=== PATIENT | female | born 1950 | race Caucasian/White ===

== ENCOUNTER → 2016-06-24 | Outpatient (CLI) | payer MEDICARE ==
[~2016-06-24] MED LIST: ALBU0.632 IH; ASPI-586 PO; CALC-654 PO; CHOL100045 PO; DIAZ5TAB3 PO; FAMO-119 PO; FLAX100031 PO; FLUT9.9S NSEACH; GLUC-173 PO; LEVO25TA5 PO; LEVO88TA26 PO; MULT1CAP27 PO; NFBIOT1000 PO; OMG1KC PO; SPIR100T2 PO; SPIR1POW3 MC; TEMA15CA6 PO
--- NOTE | 2016-06-24 12:02 | Diagnostic Imaging Report ---
INDICATION: Left hip pain. Bursitis. COMPARISON: None. FINDINGS: Two radiographic views of the left hip were obtained. There is no fracture, dislocation, bone destruction, or radiopaque foreign body. Mild degenerative changes are present in the hip joint. The visualized pelvic osseous structures and the SI joints demonstrate no acute fracture or dislocation. There is no bone destruction or radiopaque foreign body. The surrounding soft tissue structures are unremarkable. IMPRESSION: 1. No acute fracture or dislocation in the left hip joint. . 2. Mild osteoarthritic changes of the left hip. Correlation with MR is recommended. Dictated by: Dictated on workstation # [id number]
--- NOTE | 2016-06-24 22:58 | HISTORY AND PHYSICAL ---
DATE OF SERVICE: 06/24/2016 HISTORY OF PRESENT ILLNESS: The patient is a 65-year-old white female referred by Dr. Rincon for EGD evaluation. She reports worsening reflux symptoms associated with hoarseness and throat clearing. She denies dysphagia. Her symptoms exacerbated since switching from Nexium after hearing side effects about the PPI class of medication to Pepcid that she has been taking 20 mg b.i.d. She predominantly has morning symptoms and has the sensation of refluxate in the upper part of her esophagus, especially after meals. She denies dysphagia and has noted no bright red blood per rectum or melena. Energy level has been typical. She has noticed some associated weight loss, and by our record, she is down 7 pounds compared to a weight from 2013. PAST MEDICAL HISTORY: Other than reflux, is relatively unremarkable. She has insomnia for which she takes temazepam and occasional diarrhea that she takes Lomotil for. She takes fish oil for primary prevention with no known history of coronary artery disease, cerebrovascular disease or peripheral vascular disease. She does take a baby aspirin daily. ALLERGIES: She reports an ALLERGY to SULFA, which causes rash. PAST SURGICAL HISTORY: She has had total abdominal hysterectomy, tonsillectomy and adenoidectomy and D and C all in the distant past. SOCIAL HISTORY: She is . No past smoking history is reported with occasional social alcohol intake. FAMILY HISTORY: She is not aware of any family history for GI tract malignancy. PHYSICAL EXAMINATION: GENERAL: Normal weight white female who sounds slightly hoarse, but does not appear to be in any acute distress. VITAL SIGNS: Weight is 128 pounds. Blood pressure was 108/70. . HEENT: Oral cavity reveals Mallampati Class 2 configuration. No posterior pharyngeal erythema is noted. NECK: Reveals no JVD, adenopathy or bruits. CHEST: Clear. CARDIOVASCULAR: Reveals a regular rate and rhythm without murmur, S3 or S4. ABDOMEN: Soft, supple without mass, organomegaly or tenderness. Bowel sounds are positive. DIAGNOSTIC DATA: Her electronic medical record was reviewed. She last underwent EGD evaluation in 09/2012. She had 1 fundal gland polyp removed. She had mild changes of esophagitis without evidence for erosive esophagitis at that time when she was on Nexium therapy. ASSESSMENT: Exacerbation of reflux symptoms with likely associated hoarseness and throat clearing. The patient was set up for esophagogastroduodenoscopy on 07/03. She is advised to discontinue aspirin 1 week prior to the procedure and fish oil 48 hours prior to the procedure. Prep instructions were given and questions were answered. Electronic medical record was reviewed. 45 minutes of my care time spent with another 15 minutes of nursing staff time. I thank you for the referral of this pleasant lady. Job ID: [id number] DocumentID: [id number] Dictated Date: 06/24/2016 21:01:36 Teller Vault Date: 06/24/2016 22:57:24 Dictated By: BISMARK JACOBS MD [facility]
== END ==
LOC: RAD 11:27
PROVIDERS: ATTEND Family Medicine
DX: M25.552 Pain in left hip (principal)
CPT/HCPCS: 73502

== ENCOUNTER 2016-06-26 08:31 | Outpatient (RCR) | payer MEDICARE ==
[~2016-06-26 08:31] MED LIST changes: -ASPI-586 PO; -CALC-654 PO; -CHOL100045 PO; -FAMO-119 PO; -FLAX100031 PO; -FLUT9.9S NSEACH; -GLUC-173 PO; -LEVO25TA5 PO; -MULT1CAP27 PO; -NFBIOT1000 PO; -OMG1KC PO; -SPIR100T2 PO; -TEMA15CA6 PO
[2016-06-30] MEDS ORDERED: FLAX100031 PO (13:26)
[2016-06-30] MEDS ORDERED: TEMA15CA6 PO (13:26)
[2016-06-30] MEDS ORDERED: FLUT9.9S NSEACH (13:26)
[2016-06-30] MEDS ORDERED: FAMO-119 PO (13:26)
[2016-06-30] MEDS ORDERED: GLUC-173 PO (13:26)
[2016-06-30] MEDS ORDERED: SPIR100T2 PO (13:26)
[2016-06-30] MEDS ORDERED: MULT1CAP27 PO (13:26)
[2016-06-30] MEDS ORDERED: LEVO25TA5 PO (13:26)
[2016-06-30] MEDS ORDERED: CHOL100045 PO (13:26)
[2016-06-30] MEDS ORDERED: OMG1KC PO (13:26)
[2016-06-30] MEDS ORDERED: NFBIOT1000 PO (13:26)
[2016-06-30] MEDS ORDERED: ASPI-586 PO (13:26)
[2016-06-30] MEDS ORDERED: CALC-654 PO (13:26)
== END 2016-08-18 14:19 | disposition home or self-care (01) ==
PROVIDERS: ATTEND Nurse Practitioner
DX: S39.011A Strain of muscle, fascia and tendon of abdomen, initial encounter (principal); X50.9XXA Other and unspecified overexertion or strenuous movements or postures, initial encounter; Y99.8 Other external cause status

== ENCOUNTER 2016-06-30 06:00 | Outpatient (CLI) | payer MEDICARE ==
[~2016-06-30] VITALS: Ht 160 cm; Wt 59.0 kg
[2016-06-30] MEDS ORDERED: GLUC-173 PO (13:26)
[2016-06-30] MEDS ORDERED: NFBIOT1000 PO (13:26)
[2016-06-30] MEDS ORDERED: SPIR100T2 PO (13:26)
[2016-06-30] MEDS ORDERED: CHOL100045 PO (13:26)
[2016-06-30] MEDS ORDERED: TEMA15CA6 PO (13:26)
[2016-06-30] MEDS ORDERED: FLUT9.9S NSEACH (13:26)
[2016-06-30] MEDS ORDERED: ASPI-586 PO (13:26)
[2016-06-30] MEDS ORDERED: OMG1KC PO (13:26)
[2016-06-30] MEDS ORDERED: LEVO25TA5 PO (13:26)
[2016-06-30] MEDS ORDERED: FLAX100031 PO (13:26)
[2016-06-30] MEDS ORDERED: FAMO-119 PO (13:26)
[2016-06-30] MEDS ORDERED: CALC-654 PO (13:26)
[2016-06-30] MEDS ORDERED: MULT1CAP27 PO (13:26)
== END 2016-06-30 13:28 ==
LOC: PREOP 06:00
PROVIDERS: ATTEND Internal Medicine
DX: Z01.818 Encounter for other preprocedural examination (principal); R05 Cough; K21.9 Gastro-esophageal reflux disease without esophagitis; R49.0 Dysphonia

== ENCOUNTER 2016-07-03 07:03 | Day surgery (SDC) | payer MEDICARE ==
[~2016-07-03] VITALS: Ht 160 cm; Wt 59.0 kg
[~2016-07-03 07:03] MED LIST changes: +ASPI-586 PO; +CALC-654 PO; +CHOL100045 PO; +FAMO-119 PO; +FLAX100031 PO; +FLUT9.9S NSEACH; +GLUC-173 PO; +LEVO25TA5 PO; +MULT1CAP27 PO; +NFBIOT1000 PO; +OMG1KC PO; +SPIR100T2 PO; +TEMA15CA6 PO
[2016-07-03] MEDS ORDERED: D5 LR IV SOLUTION 1,000 ML IV STA (07:10)
[2016-07-03] MEDS ORDERED: fentaNYL INJECTION 100 MCG/2 ML AMP IVP PRN (07:15)
[2016-07-03] MEDS ORDERED: NALOXONE 0.4 MG/ML 1 ML (NARCAN) VIAL IVP PRN (07:15)
[2016-07-03] MEDS ORDERED: FLUMAZENIL (ROMAZICON) 0.1 MG/ML 5 ML VIAL INJ PRN (07:15)
[2016-07-03] MEDS ORDERED: HURRICAINE EXT TUBE (BENZOCAINE) XX PRN (07:15)
[2016-07-03] MEDS ORDERED: LIDOCAINE JELLY 2% (XYLOCAINE) 5 ML TUBE MM PRN (07:15)
[2016-07-03] MEDS ORDERED: MIDAZOLAM 2 MG/2 ML (VERSED) VIAL ONE ×3 (07:33→07:34)
[2016-07-03] MEDS ORDERED: fentaNYL INJECTION 100 MCG/2 ML AMP ONE (07:34)
[2016-07-03] MEDS ORDERED: LIDOCAINE JELLY 2% (XYLOCAINE) 5 ML TUBE ONE (07:34)
[2016-07-03] MEDS ORDERED: ONDANSETRON 4 MG/2 ML (SDV) Z0FRAN ONE (07:35)
[2016-07-03 08:00] VITALS: BP 117/72
[2016-07-03] MEDS: MIDAZOLAM 2 MG/2 ML (VERSED) VIAL IVP PRN ×3 (08:00→08:10)
--- NOTE | 2016-07-03 08:23 | Pre-Op Note & Conscious Sedat ---
Pre-Operative Progress Note H&P Reviewed The H&P was reviewed, patient examined and no changes noted. Date H&P Reviewed: July 03, 2016 Time H&P Reviewed: 07:45 Conscious Sedation Pre-Proced ASA Class: 1 Airway Mallampati Classification: ([place] appropriate class) I. II. III, IV Lungs Heart ASA score ASA 1: a normal healthy patient ASA 2: a patient with a mild systemic disease (mid diabetes, controlled hypertension, obesity ASA 3: a patient with a severe systemic disease that limits activity (angina , COPD, prior Myocardial infarction) ASA 4: a patient with an incapacitating disease that is a constant threat to life (CHF, renal failure) ASA 5: a moribund patient not expected to survive 24 hrs. (ruptured aneurysm) ASA 6: a declared brain patient whose organs are being harvested. For emergent operations, add the letter E after the classification Grade 2 Sedation Plan: Analgesia, Amnesia, Plan communicated to team members, Discussed options with patient/fam, Discussed risks with patient/fam Note The patient is an appropriate candidate to undergo the planned procedure, sedation, and anesthesia. The patient immediately re-assessed prior to indication. BISMARK JACOBS MD July 03, 2016 08:23
[2016-07-03 08:40] VITALS: BP 120/77
[2016-07-03 09:15] VITALS: BP 105/69
[2016-07-03 09:40] VITALS: BP 120/77
[2016-07-03 10:00] VITALS: BP 120/77
[2016-07-03 10:05] VITALS: BP 120/77
--- NOTE | 2016-07-03 11:50 | OPERATIVE REPORT ---
DATE OF SERVICE: EGD SUMMARY INDICATION FOR THE PROCEDURE: Hoarseness, chronic cough, history of reflux. The patient was placed in the left lateral decubitus position. The endoscope was inserted in the oral cavity and under direct visualization the esophagus was intubated. The scope was passed down the esophagus through the stomach and into the second portion of the duodenum. A careful inspection was made as the endoscope was withdrawn. The patient tolerated the procedure well. FINDINGS: Posterior hypopharynx, arytenoid aperture and true and false vocal folds were unremarkable. No evidence for erythema or vocal cord polyps were noted. The patient's voice quality before and after the procedure was normal, no hoarseness appreciated. The proximal mid and distal esophagus were unremarkable except for small traction diverticulum noted in the mid esophagus. No retained food was noted. No inflammatory change was noted. There was no evidence of 135, strictures or Yepez's change. The Z-line was distinct. Biopsy was obtained and submitted for histopathology. Several small fundal appearing polyps were noted along the greater curvature of the stomach. Largest one was removed via hot forceps in its entirety and submitted for histopathology. Remainder of the stomach was unremarkable with no evidence for erosions or gastritis. Biopsy was obtained and submitted for Helicobacter. The pylorus, pyloric channel, duodenal bulb and second portion of the duodenum were unremarkable. ASSESSMENT: There was no evidence of erosive esophagitis on today's study. The patient did not have evidence for hiatal hernia formation. Several small fundal polyps were present; the largest was removed and submitted for histopathology. A biopsy is pending for Helicobacter evaluation. We discussed the fact that while reflux and secondary cough has not been ruled out today, she has no evidence for erosive esophagitis, would continue b.i.d. Pepcid for now. She does have a history of asthma that she perceives as being mild and rarely uses albuterol via MDI only. We did discuss cough variant asthma and recommended that she try a month course of the antinflammatory inhaler of your choice. If this does not improve cough, would then recommend a 24-hour pH study to see if she is indeed having significant reflux without erosive esophagitis. I thank you for the referral of this pleasant lady reassured by today's study. Job ID: [id number] DocumentID: [id number] Dictated Date: 07/03/2016 10:03:10 Shell Reprint Operator Date: 07/03/2016 11:22:23 Dictated By: BISMARK JACOBS MD [facility]
--- NOTE | 2016-07-09 08:56 | HISTORY AND PHYSICAL ---
DATE OF SERVICE: 07/03/2016 HISTORY OF PRESENT ILLNESS: The patient is a 65-year-old white female referred by Dr. Rincon for EGD evaluation. She reports worsening reflux symptoms associated with hoarseness and throat clearing. She denies dysphagia. Her symptoms exacerbated since switching from Nexium after hearing side effects about the PPI class of medication to Pepcid that she has been taking 20 mg b.i.d. She predominantly has morning symptoms and has the sensation of refluxate in the upper part of her esophagus, especially after meals. She denies dysphagia and has noted no bright red blood per rectum or melena. Energy level has been typical. She has noticed some associated weight loss, and by our record, she is down 7 pounds compared to a weight from 2013. PAST MEDICAL HISTORY: Other than reflux, is relatively unremarkable. She has insomnia for which she takes temazepam and occasional diarrhea that she takes Lomotil for. She takes fish oil for primary prevention with no known history of coronary artery disease, cerebrovascular disease or peripheral vascular disease. She does take a baby aspirin daily. ALLERGIES: She reports an ALLERGY to SULFA, which causes rash. PAST SURGICAL HISTORY: She has had total abdominal hysterectomy, tonsillectomy and adenoidectomy and D and C all in the distant past. SOCIAL HISTORY: She is . No past smoking history is reported with occasional social alcohol intake. FAMILY HISTORY: She is not aware of any family history for GI tract malignancy. PHYSICAL EXAMINATION: GENERAL: Normal weight white female who sounds slightly hoarse, but does not appear to be in any acute distress. VITAL SIGNS: Weight is 128 pounds. Blood pressure was 108/70. . HEENT: Oral cavity reveals Mallampati Class 2 configuration. No posterior pharyngeal erythema is noted. NECK: Reveals no JVD, adenopathy or bruits. CHEST: Clear. CARDIOVASCULAR: Reveals a regular rate and rhythm without murmur, S3 or S4. ABDOMEN: Soft, supple without mass, organomegaly or tenderness. Bowel sounds are positive. DIAGNOSTIC DATA: Her electronic medical record was reviewed. She last underwent EGD evaluation in 09/2012. She had 1 fundal gland polyp removed. She had mild changes of esophagitis without evidence for erosive esophagitis at that time when she was on Nexium therapy. ASSESSMENT: Exacerbation of reflux symptoms with likely associated hoarseness and throat clearing. The patient was set up for esophagogastroduodenoscopy on 07/03. She is advised to discontinue aspirin 1 week prior to the procedure and fish oil 48 hours prior to the procedure. Prep instructions were given and questions were answered. Electronic medical record was reviewed. 45 minutes of my care time spent with another 15 minutes of nursing staff time. I thank you for the referral of this pleasant lady. Job ID: [id number] DocumentID: [id number] Dictated Date: 06/24/2016 21:01:36 Route Delivery Supervisor Date: 06/24/2016 22:57:24 Dictated By: BISMARK JACOBS MD <Dictated by BISMARK JACOBS MD> <Electronically signed by BISMARK JACOBS MD> 06/30/16 1010
== END 2016-07-03 10:05 | disposition home or self-care (01) ==
LOC: ENDO 07:03
PROVIDERS: ATTEND Internal Medicine
DX: K21.9 Gastro-esophageal reflux disease without esophagitis (principal); K31.7 Polyp of stomach and duodenum
CPT/HCPCS: 88305

== ENCOUNTER → 2016-07-07 | Outpatient (CLI) | payer MEDICARE ==
--- NOTE | 2016-07-07 10:21 | Diagnostic Imaging Report ---
PROCEDURE: US Thyroid. TECHNIQUE: Multiple real-time grayscale images were obtained of the thyroid in various projections. Indication: Followup thyroid nodules. Comparison: 08/16/2015 and 02/14/2009. Discussion: The thyroid gland is normal in echotexture and size. The right thyroid measures 4.4 x 1.8 cm. The left thyroid measures 4.7 x 1.9 cm. Solid-appearing heterogenous nodule within the right thyroid gland measures 1 cm, stable. Minimal peripheral and central color Doppler blood flow is again noted. No suspicious microcalcifications. Dominant cystic nodule within the left thyroid gland shows a small solid component and appears essentially stable in overall size. A 1 cm solid nodule within the left thyroid gland is stable in overall size and appearance. Interval development of a simple appearing anechoic cyst within the isthmus which measures 1.3 x 1.7 x 0.7 cm which is statistically benign though indeterminate. Recommend one-year sonographic followup to document further stability. Impression: 1. Bilateral thyroid nodules as described. There is a new cystic nodule within the isthmus which is statistically benign given its entirely cystic component. The solid nodules within the bilateral thyroid gland measure up to 1 cm and show no adverse interval change. Recommend one-year sonographic followup. Dictated by: Dictated on workstation # [id number]
== END ==
LOC: RAD 09:20
PROVIDERS: ATTEND Otolaryngology Otolaryngology/Facial Plastic Surgery
DX: E04.1 Nontoxic single thyroid nodule (principal)
CPT/HCPCS: 76536

== ENCOUNTER 2016-09-21 05:36 | Outpatient (CLI) | payer MEDICARE ==
[~2016-09-21] VITALS: Ht 160 cm; Wt 59.0 kg
[2016-09-21] MEDS ORDERED: CYAN50008 PO (11:07)
== END 2016-09-21 11:11 ==
LOC: PREOP 05:36
PROVIDERS: ATTEND Internal Medicine
DX: Z01.818 Encounter for other preprocedural examination (principal); Z12.11 Encounter for screening for malignant neoplasm of colon; Z86.010 Personal history of colon polyps

== ENCOUNTER 2016-09-25 07:02 | Day surgery (SDC) | payer MEDICARE ==
[~2016-09-25] VITALS: Ht 160 cm; Wt 59.0 kg
[~2016-09-25 07:02] MED LIST changes: +CYAN50008 PO
--- OUTSIDE RECORDS SUMMARY | 2016-09-25 07:08 | XMS REPORT | Clinical Summary ---
Author Author [facility] Organization [facility] Address Unknown Phone Unavailable Care Team Providers Care Case Repairer Name Role Phone PCP Unavailable Source Comments Some departments are not documenting in the electronic medical record. If you do not see the information that you expected, contact Release of Information in the Health Information Management department at [phone] for further assistance in locating additional records.[facility] Allergies Active Allergy Reactions Severity Noted Date Comments Sulfa (Sulfonamide RASH 02/19/2014 Antibiotics) Current Medications Prescription Sig. Disp. Refills Start End Date Status Date levothyroxine (SYNTHROID) Take 88 mcg by mouth Active 88 mcg tablet daily. pantoprazole DR Take 40 mg by mouth Active (PROTONIX) 40 mg tablet daily. temazepam (RESTORIL) 15 Take 15 mg by mouth at Active mg capsule bedtime as needed. diphenoxylate/atropine Take 1 Tab by mouth four Active (LOMOTIL) 2.5/0.025 mg times daily as needed. tablet fluticasone (FLONASE) 50 Apply 2 Sprays to each Active mcg/actuation nasal spray nostril as directed daily. FOLIC Take by mouth. Active ACID/MULTIVITS-MIN/LUT (CENTRUM SILVER PO) vitamins, B complex tab Take 1 Tab by mouth Active daily. omega-3 fatty Take by mouth. Active lhgyy-ete-oap (MEGARED GUPIE-WSGFX-4) 300 mg cap FLAXSEED PO Take by mouth. Active aspirin EC (ASPIR-81) 81 Take 81 mg by mouth Active mg tablet daily. coQ10 (ubiquinol) 100 mg Take by mouth. Active cap magnesium citrate oral Take 296 mL by mouth Active solution once. cholecalciferol (Vitamin Take 1,000 Units by mouth Active D3) (VITAMIN D-3) 1,000 daily. units tablet calcium Administer through vein. Active Active Problems Problem Noted Date Hydronephrosis, right 02/19/2014 Ureteral stricture, right 02/19/2014 Overview: 63 year old female with R distal ureteral stricture of unknown origin resulting in an essentially non-functioning R kidney with R hydroureteronephrosis. Completely asymptomatic at this time. L ast Assessment & Plan: Plan: 1. Discussed with patient that indications for surgical intervention would be recurrent infections and uncontrolled R flank pain. She is completely asymptomatic at this time and thus it is reasonable for her to watch and wait to see if symptoms develop. If she remains asymptomatic, no intervention is needed. 2. She will RTC prn and will follow up with her PCP. If she develops recurrent UTIs or pain on that side, she will return to clinic to discuss further intervention. 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 Pulse 73 02/19/2014 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 Temperature - - Respiratory Rate - - Oxygen Saturation - - Inhaled Oxygen - - Concentration Weight 61.4 kg (135 lb 6.4 oz) 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
--- OUTSIDE RECORDS SUMMARY | 2016-09-25 07:09 | XMS REPORT | Continuity of Care Document ---
Author Author [facility] Organization [facility] Address Unknown Phone Unavailable Allergies Active Description Code Type Severity Reaction Onset Reported/Identified Relationship to Patient Clinical Status Yes Sulfa (Sulfonamide Antibiotics) [id number] Drug Allergy Unknown N/A 07/13/2011 Yes Sulfa (Sulfonamide Antibiotics) [id number] Drug Allergy Moderate RASH 09/21/2016 Medications Problems Date Dx Coded Attending Type Code Diagnosis Diagnosed By 09/13/2012 REYNALDO ALEGRIA, BISMARK Laurent Ot 211.1 BENIGN NEOPLASM STOMACH 09/13/2012 REYNALDO ALEGRIA, BISMARK Laurent Ot 530.81 ESOPHAGEAL REFLUX 09/13/2012 BISMARK JACOBS MD Ot 553.3 DIAPHRAGMATIC HERNIA 01/12/2014 CYNTHIA ZAMBRANO DO S Ot 241.0 01/12/2014 CYNTHIA ZAMBRANO DO S Ot 591 02/05/2014 CYNTHIA ZAMBRANO DO S Ot 591 07/17/2014 TYSHAWN BLUNT MD Ot 719.41 07/17/2014 TYSHAWN BLUNT MD Ot 724.2 07/17/2014 TYSHAWN BLUNT MD Ot V57.1 08/08/2014 TYSHAWN BLUNT MD Ot 719.41 08/08/2014 TYSHAWN BLUNT MD Ot 724.2 08/08/2014 TYSHAWN BLUNT MD Ot V57.1 08/31/2014 TYSHAWN BLUNT MD Ot 719.41 08/31/2014 TYSHAWN BLUNT MD Ot 724.2 08/31/2014 TYSHAWN BLUNT MD Ot V57.1 09/06/2014 TYSHAWN BLUNT MD Ot 719.41 09/06/2014 TYSHAWN BLUNT MD Ot 724.2 09/06/2014 TYSHAWN BLUNT MD Ot V57.1 10/14/2014 TYSHAWN BLUNT MD Ot 719.41 JOINT PAIN-SHLDER 10/14/2014 TYSHAWN BLUNT MD Ot 724.2 LUMBAGO 10/14/2014 TYSHAWN BLUNT MD Ot V57.1 PHYSICAL THERAPY NEC 10/24/2014 TYSHAWN BLUNT MD Ot 719.41 10/24/2014 TYSHAWN BLUNT MD Ot 724.2 10/24/2014 TYSHAWN BLUNT MD Ot V57.1 11/06/2014 TYSHAWN BLUNT MD Ot 719.41 JOINT PAIN-SHLDER 11/06/2014 TYSHAWN BLUNT MD Ot 724.2 LUMBAGO 11/06/2014 TYSHAWN BLUNT MD Ot M25.519 PAIN IN UNSPECIFIED SHOULDER 11/06/2014 TYSHAWN BLUNT MD Ot M54.5 LOW BACK PAIN 11/06/2014 TYSHAWN BLUNT MD Ot V57.1 PHYSICAL THERAPY NEC 11/06/2014 TYSHAWN BLUNT MD Ot Z51.89 ENCOUNTER FOR OTHER SPECIFIED AFTERCARE 05/29/2015 Ot M85.80 OT DISRD OF BONE DENSITY AND STRUCTURE, 08/19/2015 ORENDER DO, CYNTHIA S Ot E03.9 HYPOTHYROIDISM, UNSPECIFIED 08/19/2015 ORENDER DO, CYNTHIA S Ot E03.9 HYPOTHYROIDISM, UNSPECIFIED 08/20/2015 YANIVNDDONALDO DO, CYNTHIA S Ot E03.9 HYPOTHYROIDISM, UNSPECIFIED 09/19/2015 ORENDER DO, CYNTHIA S Ot E03.9 HYPOTHYROIDISM, UNSPECIFIED 10/04/2015 AWAIS ALEGRIA, KELLY P Ot E04.2 NONTOXIC MULTINODULAR GOITER 10/05/2015 KELLY ERNANDEZ MD Ot E04.2 NONTOXIC MULTINODULAR GOITER 10/07/2015 KENYA STAPLES, CYNTHIA S Ot E03.9 HYPOTHYROIDISM, UNSPECIFIED 10/25/2015 AWAIS ALEGRIA, KELLY Garrison Ot E04.2 NONTOXIC MULTINODULAR GOITER 11/06/2015 KELLY ERNANDEZ MD Ot E04.2 NONTOXIC MULTINODULAR GOITER 05/12/2016 Ot V72.84 EXAM PRE-OPERATIVE NOS 05/12/2016 Ot V12.72 PERSONAL HISTORY OF COLONIC POLYPS 05/12/2016 Ot V76.51 SCREEN MAL NEOP-COLON 05/12/2016 REYNALDO ALEGRIA, BISMARK Laurent Ot V72.84 EXAM PRE-OPERATIVE NOS 05/12/2016 YANIVNDER , CYNTHIA S Ot 733.90 BONE CARTILAGE DIS NOS 05/12/2016 YANIVNDER DOSERGEICYNTHIA S Ot 591 HYDRONEPHROSIS 05/12/2016 YANIVNDCYNTHIA FULTON DO S Ot 241.0 NONTOX UNINODULAR GOITER 05/12/2016 ORENDER SERGEI STAPLESLINE S Ot 591 HYDRONEPHROSIS 05/12/2016 Ot M85.80 OT DISRD OF BONE DENSITY AND STRUCTURE, 05/12/2016 CYNTHIA ZAMBRANO DO S Ot E03.9 HYPOTHYROIDISM, UNSPECIFIED 05/12/2016 AWAIS ALEGRIA, KELLY Garrison Ot E04.2 NONTOXIC MULTINODULAR GOITER 05/28/2016 TRACE ORANTESKathryn Ramirez BELT LOOP MACHINE OPERATOR Ot S39.011A STRAIN OF MUSCLE, FASCIA AND TENDON OF A 05/28/2016 LAMBERTO JUAN MANUEL James BELT LOOP MACHINE OPERATOR Ot X50.9XXA OTHER AND UNSPECIFIED OVREXRTN OR STRNOU 05/28/2016 LAMBERTO JUAN MANUEL N BELT LOOP MACHINE OPERATOR Ot Y99.8 OTHER EXTERNAL CAUSE STATUS 06/03/2016 JUAN MANUEL ORANTES James BELT LOOP MACHINE OPERATOR Ot S39.011A STRAIN OF MUSCLE, FASCIA AND TENDON OF A 06/03/2016 JUAN MANUEL ORANTES James BELT LOOP MACHINE OPERATOR Ot X50.9XXA OTHER AND UNSPECIFIED OVREXRTN OR STRNOU 06/03/2016 LAMBERTO JUAN MANUEL N BELT LOOP MACHINE OPERATOR Ot Y99.8 OTHER EXTERNAL CAUSE STATUS 07/01/2016 BISMARK JACOBS MD Ot K21.9 GASTRO-ESOPHAGEAL REFLUX DISEASE WITHOUT 07/01/2016 BISMARK JACOBS MD Ot R05 COUGH 07/01/2016 BISMARK JACOBS MD Ot R49.0 DYSPHONIA 07/01/2016 BISMARK JACOBS MD Ot Z01.818 ENCOUNTER FOR OTHER PREPROCEDURAL EXAMIN 07/03/2016 BISMARK JACOBS MD Ot K21.9 GASTRO-ESOPHAGEAL REFLUX DISEASE WITHOUT 07/03/2016 BISMARK JACOBS MD Ot K31.7 POLYP OF STOMACH AND DUODENUM 07/09/2016 BISMARK JACOBS MD Ot K21.9 GASTRO-ESOPHAGEAL REFLUX DISEASE WITHOUT 07/09/2016 BISMARK JACOBS MD Ot K31.7 POLYP OF STOMACH AND DUODENUM 07/10/2016 BISMARK JACOBS MD Ot K21.9 GASTRO-ESOPHAGEAL REFLUX DISEASE WITHOUT 07/10/2016 BISMARK JACOBS MD Ot K31.7 POLYP OF STOMACH AND DUODENUM 07/14/2016 JUAN MANUEL ORANTES BELT LOOP MACHINE OPERATOR Ot S39.011A STRAIN OF MUSCLE, FASCIA AND TENDON OF A 07/14/2016 JUAN MANUEL ORANTES BELT LOOP MACHINE OPERATOR Ot X50.9XXA OTHER AND UNSPECIFIED OVREXRTN OR STRNOU 07/14/2016 JUAN MANUEL ORANTES BELT LOOP MACHINE OPERATOR Ot Y99.8 OTHER EXTERNAL CAUSE STATUS 07/20/2016 JUAN MANUEL ORANTES BELT LOOP MACHINE OPERATOR Ot S39.011A STRAIN OF MUSCLE, FASCIA AND TENDON OF A 07/20/2016 JUAN MANUEL ORANTES BELT LOOP MACHINE OPERATOR Ot X50.9XXA OTHER AND UNSPECIFIED OVREXRTN OR STRNOU 07/20/2016 JUAN MANUEL ORANTES BELT LOOP MACHINE OPERATOR Ot Y99.8 OTHER EXTERNAL CAUSE STATUS 07/20/2016 CYNTHIA ZAMBRANO DO S Ot M25.552 PAIN IN LEFT HIP 07/22/2016 CYNTHIA ZAMBRANO DO S Ot M25.552 PAIN IN LEFT HIP 07/28/2016 AWAIS ALEGRIA, KELLY Garrison Ot E04.1 NONTOXIC SINGLE THYROID NODULE 08/06/2016 AWAIS ALEGRIA, KELLY Garrison Ot E04.1 NONTOXIC SINGLE THYROID NODULE 09/21/2016 BISMARK JACOBS MD Ot Z01.818 ENCOUNTER FOR OTHER PREPROCEDURAL EXAMIN 09/21/2016 BISMARK JACOBS MD Ot Z12.11 ENCOUNTER FOR SCREENING FOR MALIGNANT NE 09/21/2016 BISMARK JACOBS MD Ot Z86.010 PERSONAL HISTORY OF COLONIC POLYPS 09/21/2016 BISMARK JACOBS MD Ot Z01.818 ENCOUNTER FOR OTHER PREPROCEDURAL EXAMIN 09/21/2016 BISMARK JACOBS MD Ot Z12.11 ENCOUNTER FOR SCREENING FOR MALIGNANT NE 09/21/2016 BISMARK JACOBS MD Ot Z86.010 PERSONAL HISTORY OF COLONIC POLYPS Procedures Results Encounters ACCT No. Visit Date/Time Discharge Status Pt. Type Provider Facility Loc./Unit Complaint [id number] 09/21/2016 05:36:00 2016 11:11:00 DIS Outpatient BISMARK JACOBS MD [facility] PREOP COLONSCOPY SCREENING [id number] 06/26/2016 08:31:00 2016 14:19:00 DIS Outpatient JUAN MANUEL ORANTES APRN [facility] REHAB L GROIN STRAIN [id number] 07/07/2016 09:20:00 2016 23:59:59 CLS Outpatient KELLY ERNANDEZ MD [facility] RAD THYROID GOITER [id number] 07/03/2016 07:03:00 2016 10:05:00 DIS Outpatient BISMARK JACOBS MD [facility] ENDO COUGH, HOARSENESS, INCREASED GERD [id number] 06/30/2016 06:00:00 2016 13:28:00 DIS Outpatient BISMARK JACOBS MD [facility] PREOP COUGH, HOARSENESS, INCREASED GERD [id number] 06/24/2016 11:27:00 2016 23:59:59 CLS Outpatient CYNTHIA ZAMBRANO DO S [facility] RAD LT HIP PAIN [id number] 10/03/2015 10:49:00 2015 23:59:59 CLS Outpatient KELLY ERNANDEZ MD [facility] CARD MULTIPLE THYROID NODULES [id number] 08/16/2015 11:57:00 2015 23:59:59 CLS Outpatient CYNTHIA ZAMBRANO DO S [facility] RAD HYPOTHYROIDISM [id number] 10/23/2014 10:10:00 2014 13:18:00 DIS Outpatient TYSHAWN BLUNT MD [facility] REHAB L SHOULDER PAIN,LUMBAGO [id number] 10/12/2014 09:58:00 2014 00:01:00 DIS Outpatient TYSHAWN BLUNT MD [facility] REHAB L SHOULDER PAIN,LUMBAGO [id number] 12/15/2013 08:04:00 2013 23:59:59 CLS Outpatient CYNTHIA ZAMBRANO DO S [facility] RAD RIGHT HYDRONEPHROSIS [id number] 12/13/2013 10:49:00 2013 23:59:59 CLS Outpatient ORENDER DO, CYNTHIA S [facility] RAD HYDRONEPHROSIS [id number] 02/24/2013 09:33:00 2013 23:59:59 CLS Outpatient CYNTHIA ZAMBRANO DO [facility] RAD OSTEOPENIA [id number] 09/13/2012 07:15:00 2012 09:40:00 DIS Outpatient BISMARK JACOBS MD [facility] SDC GERD [id number] 09/07/2012 07:22:00 2012 23:59:59 CLS Outpatient BISMARK JACOBS MD [facility] PREOP GERD [id number] 09/25/2016 07:45:00 PEN Preadmit BISMARK JACOBS MD [facility] ENDO COLON POLYPS [id number] 05/12/2016 11:06:00 Document Registration [id number] 05/09/2015 08:19:00 Document Registration [id number] 07/13/2011 07:40:00 Document Registration [id number] 07/09/2011 07:06:00 Document Registration
[2016-09-25] MEDS ORDERED: 1/2 NS IV SOLUTION 1,000 ML IV STA (07:15)
[2016-09-25] MEDS ORDERED: LIDOCAINE JELLY 2% (XYLOCAINE) 5 ML TUBE MM PRN (07:15)
--- NOTE | 2016-09-25 07:35 | HISTORY AND PHYSICAL ---
DICTATING PHYSICIAN: Dr. Hong DATE OF ADMISSION: 09/25/2016 Mrs. Avalos is a 64-year-old white female referred for screening colonoscopy by Dr. Rincon. She is deemed to be of higher than average risk due to positive history of adenomatous colonic polyps. She had one adenoma removed per Dr. Escalante 5 years ago and was advised to have repeat screening in 5 years. She reports that she has felt well, has noted no bright red blood per rectum or melena and denies bowel habit change. PAST SURGICAL HISTORY: 1. She has had total abdominal hysterectomy. 2. Tonsillectomy and adenoidectomy in the past. SOCIAL HISTORY: She is , with no past smoking history had reported occasional social alcohol intake. FAMILY HISTORY: She is not aware of any family history of GI tract malignancy. PHYSICAL EXAMINATION: Reveals a normal weight white female, appears to be in no acute distress. VITAL SIGNS: Blood pressure was 110/72. HEENT EXAMINATION: Unremarkable. She is a Mallampati class I oropharyngeal configuration. NECK: Revealed no JVD, adenopathy or bruits. CHEST: Clear. CV: Reveals regular rate and rhythm without murmur, S3 or S4. ABDOMEN: Soft, supple without masses, organomegaly or tenderness. EXTREMITIES: Reveal no cyanosis, clubbing, or edema. ASSESSMENT: Due to past history of adenomatous colonic polyps, the patient is set-up for surveillance colonoscopy on 09/25. Prep instructions with the Yanes prep kit were given and questions were answered. I thank you for the referral was pleasant lady. Sincerely, Jacinto Hong Job ID: [id number] Dictated Date: 08/26/2016 17:17:00 Geophysics Scientist Date: 08/27/2016 09:24:04/dalila
[2016-09-25 07:36] VITALS: BP 129/75
[2016-09-25] MEDS ORDERED: LIDOCAINE JELLY 2% (XYLOCAINE) 5 ML TUBE ONE (07:54)
[2016-09-25] MEDS ORDERED: fentaNYL INJECTION 100 MCG/2 ML AMP ONE (07:54)
[2016-09-25] MEDS ORDERED: MIDAZOLAM 2 MG/2 ML (VERSED) VIAL ONE ×4 (07:55)
[2016-09-25] MEDS ORDERED: ONDANSETRON 4 MG/2 ML (SDV) Z0FRAN ONE (07:55)
[2016-09-25] MEDS: MIDAZOLAM 2 MG/2 ML (VERSED) VIAL IVP PRN ×3 (07:59→08:10)
[2016-09-25] MEDS: fentaNYL INJECTION 100 MCG/2 ML AMP IVP PRN ×2 (08:00→08:07)
--- NOTE | 2016-09-25 08:00 | Pre-Op Note & Conscious Sedat ---
Pre-Operative Progress Note H&P Reviewed The H&P was reviewed, patient examined and no changes noted. Date H&P Reviewed: Sep 25, 2016 Time H&P Reviewed: 07:30 Conscious Sedation Pre-Proced ASA Class: 1 Airway Mallampati Classification: (salamatof appropriate class) I. II. III, IV Lungs Heart ASA score ASA 1: a normal healthy patient ASA 2: a patient with a mild systemic disease (mid diabetes, controlled hypertension, obesity ASA 3: a patient with a severe systemic disease that limits activity (angina , COPD, prior Myocardial infarction) ASA 4: a patient with an incapacitating disease that is a constant threat to life (CHF, renal failure) ASA 5: a moribund patient not expected to survive 24 hrs. (ruptured aneurysm) ASA 6: a declared brain patient whose organs are being harvested. For emergent operations, add the letter E after the classification Grade 1 Sedation Plan: Analgesia, Amnesia, Plan communicated to team members, Discussed options with patient/fam, Discussed risks with patient/fam Note The patient is an appropriate candidate to undergo the planned procedure, sedation, and anesthesia. The patient immediately re-assessed prior to indication. BISMARK JACOBS MD Sep 25, 2016 08:00
[2016-09-25] MEDS ORDERED: ONDANSETRON 4 MG/2 ML (SDV) Z0FRAN IVP ONE (08:15)
[2016-09-25 08:35] VITALS: BP 116/68
[2016-09-25 09:15] VITALS: BP 116/65
[2016-09-25 09:34] VITALS: BP 116/65
--- NOTE | 2016-09-26 01:07 | OPERATIVE REPORT ---
DATE OF SERVICE: 09/25/2016 COLONOSCOPY SUMMARY INDICATION FOR THE PROCEDURE: Screening colonoscopy. The patient was placed in the left lateral decubitus position. Prior to undergoing colonoscopy, digital rectal evaluation was performed. Anal sphincter tone was normal and the perianal reflex was intact. No abnormalities, no additional inspection of the anal canal or distal rectal vault. The colonoscope was then inserted into the rectum and under direct visualization advanced to the cecum. The cecum was identified by identification of the ileocecal valve cecal strap. Photographic documentation was obtained. Careful inspection was made as the colonoscope was withdrawn. FINDINGS: There was no evidence for internal or external hemorrhoids. The rectum, sigmoid colon, descending colon, splenic flexure, transverse colon, hepatic flexure, ascending colon and cecum were unremarkable. There was no evidence for diverticular disease or neoplasia. ASSESSMENT: Normal colonoscopy to the cecum. As long as the patient continues to note no family history for colon cancer, would advocate consideration for repeat screening colonoscopy in 10 years. I thank you for the referral of this pleasant lady. Job ID: [id number] DocumentID: [id number] Dictated Date: 09/25/2016 11:57:07 Computer Education Teacher Date: 09/25/2016 14:28:19 Dictated By: BISMARK JACOBS MD
== END 2016-09-25 09:35 | disposition home or self-care (01) ==
LOC: ENDO 07:02
PROVIDERS: ATTEND Internal Medicine
DX: Z12.11 Encounter for screening for malignant neoplasm of colon (principal); Z86.010 Personal history of colon polyps

== ENCOUNTER 2017-01-22 10:45 | Outpatient (RCR) | payer MEDICARE | END 2017-02-23 10:48 | disposition home or self-care (01) | PROVIDERS: ATTEND Family Medicine | DX: M25.512 Pain in left shoulder (principal) ==

== ENCOUNTER → 2017-07-12 | Outpatient (CLI) | payer MEDICARE ==
--- NOTE | 2017-07-12 18:56 | Diagnostic Imaging Report ---
PROCEDURE: US Thyroid. TECHNIQUE: Multiple real-time grayscale images were obtained of the thyroid in various projections. INDICATION: Thyroid nodules. Comparison made with prior examination from 07/07/2016. FINDINGS: The right lobe of the thyroid measures 4.6 x 1.7 x 1.6 cm. There is a small hypoechoic nodule on the right measuring 0.9 x 0.8 cm. This is slightly smaller than on the prior examination. The left lobe of the thyroid measures 4.7 x 1.8 x 1.8 cm. There is an isoechoic nodule superiorly measuring 1 x 0.9 cm which is unchanged. There is a cyst with a small mural nodule measuring 2.9 x 0.9 x 1.5 cm. This too looks similar. There is a new complex cyst inferiorly on the left measuring 1.8 x 0.9 cm. There is a cyst in the isthmus measuring 1.5 x 0.6 x 1.4 cm which is slightly larger than the prior examination. IMPRESSION: Bilateral thyroid nodules and cysts as described. Overall findings are generally stable compared to the prior examination. No new large solid lesions are appreciated. Dictated by: Dictated on workstation # [id number]
== END ==
LOC: RAD 13:06
PROVIDERS: ATTEND Otolaryngology Otolaryngology/Facial Plastic Surgery
DX: E04.2 Nontoxic multinodular goiter (principal)
CPT/HCPCS: 76536

== ENCOUNTER 2018-02-03 10:00 | Outpatient (RCR) | payer MEDICARE ==
[~2018-02-03 10:00] MED LIST changes: -SPIR100T2 PO; +SPIR100T4 PO
== END 2018-02-21 | disposition home or self-care (01) ==
PROVIDERS: ATTEND Family Medicine
DX: M51.36 Other intervertebral disc degeneration, lumbar region (principal); M25.551 Pain in right hip; M25.512 Pain in left shoulder

== ENCOUNTER → 2018-08-02 | Outpatient (CLI) | payer MEDICARE ==
--- NOTE | 2018-08-02 16:28 | Diagnostic Imaging Report ---
PROCEDURE: US Thyroid. TECHNIQUE: Multiple real-time grayscale images were obtained of the thyroid in various projections. INDICATION: Bilateral thyroid nodules. COMPARISON: Correlation is made with prior study from 07/12/2017. FINDINGS: Right lobe of the thyroid measures 4.7 x 1.8 x 1.8 cm and left lobe measures 5.5 x 1.6 x 2.3 cm. Circumscribed hypoechoic nodule in the upper pole of left lobe of the thyroid measures 1.1 x 0.7 x 0.9 cm, similar to prior study. Primarily cystic mass with mural nodularity in the mid aspect measures 2.6 x 1.0 x 1.3 cm compared with 2.2 x 0.9 x 1.5 cm. Nodule noted in the lower pole of the left lobe on prior study is not well seen on today's study. Right lobe contains a circumscribed hypoechoic nodule measuring 1.2 x 0.7 x 0.9 cm compared with 0.9 x 0.5 x 0.8 cm on prior. Cystic-appearing nodule in the isthmus measures 1.5 x 0.7 x 1.4 cm, unchanged. IMPRESSION: Bilateral thyroid nodules. Overall, this appears to be very similar to the examination from one year earlier. Dictated by: Dictated on workstation # [id number]
== END ==
LOC: RAD 10:57
PROVIDERS: ATTEND Otolaryngology Otolaryngology/Facial Plastic Surgery
DX: E04.2 Nontoxic multinodular goiter (principal)
CPT/HCPCS: 76536

== ENCOUNTER 2018-09-07 10:00 | Outpatient (RCR) | payer MEDICARE | END 2018-09-19 10:24 | disposition still patient (30) | PROVIDERS: ATTEND Nurse Practitioner Family | DX: M25.561 Pain in right knee (principal) ==

== ENCOUNTER → 2018-09-07 | Outpatient (CLI) | payer MEDICARE ==
[2018-09-07 16:36] LABS: CREATININE SERUM 1.38 MG/DL (0.60-1.30)
== END ==
LOC: LAB 15:59
PROVIDERS: ATTEND Family Medicine
DX: M25.561 Pain in right knee (principal)
CPT/HCPCS: 36415; 82565; 84520

== ENCOUNTER 2018-11-16 14:12 | Outpatient (RCR) | payer MEDICARE | END 2018-11-16 17:00 | disposition home or self-care (01) | PROVIDERS: ATTEND Physician Assistant Medical | DX: M25.561 Pain in right knee (principal); Z98.890 Other specified postprocedural states ==

== ENCOUNTER → 2019-04-03 | Outpatient (CLI) | payer MEDICARE ==
--- NOTE | 2019-04-03 16:29 | Diagnostic Imaging Report ---
EXAMINATION: Chest 2 view HISTORY: Chronic cough for 2 years. COMPARISON: CT chest on 12/15/2013. FINDINGS: The lung volumes are hyperexpanded. No focal consolidation is seen. No large pleural effusion or pneumothorax is seen. The cardiomediastinal silhouette is normal in size and contour. No acute osseous abnormality is seen. IMPRESSION: 1. Hyperexpanded lung volumes, which can be seen with COPD. No focal consolidation or mass. Dictated by: Dictated on workstation # [id number]
== END ==
LOC: RAD 12:23
PROVIDERS: ATTEND Family Medicine
DX: R05 Cough (principal)
CPT/HCPCS: 71046

== ENCOUNTER → 2019-04-11 | Outpatient (CLI) | payer MEDICARE ==
--- NOTE | 2019-04-11 13:44 | Diagnostic Imaging Report ---
INDICATION: Screening for osteoporosis. COMPARISON: 05/09/2015 FINDINGS: The bone mineral density of the hips and spine was measured. This exam was compared to the prior exam of 05/09/2015. The T score for the spine is -1.6. This is unchanged when compared to the prior study. The total T score for the left hip is -2.3 and for the right hip -2.1. On the prior exam the respective T-scores were -1.9 and 1.6. The T score for the left femoral neck is -2.0 and for the right femoral neck -2.3. On the prior study the T-scores were -1.9 and -2.0. AP Spine L1-L4: [BMD (g/cm2): 1.012] [T-Score: -1.6] [Z-Score: 0.3] [BMD Previous: 1.014] [BMD % Change: -0.2] LT Hip Neck: [BMD (g/cm2): 0.755] [T-Score: -2.0] [Z-Score: -0.2] LT Hip Total: [BMD (g/cm2):0.723] [T-Score:-2.3] [Z-Score: -0.7] [BMD Previous: 0.769] [BMD % Change: -6.0] RT Hip Neck: [BMD (g/cm2):0.713] [T-Score:-2.3] [Z-Score:-0.5] RT Hip Total: [BMD (g/cm2):0.740] [T-score:-2.1] [Z-Score:-0.5] [BMD Previous:0.808] [BMD % Change:-8.4] *Indicates significant change from prior examination based on 95% confidence level. World Health Organization criteria for BMD interpretation classify patients as Normal (T-score at or above -1.0), Osteopenic (T-score between -1.0 and -2.5) or Osteoporotic (T-score at or below -2.5). LIMITATIONS AND MODIFICATION: None. FRACTURE RISK (FRAX SCORE): The ten year probability of (%): Major Osteoporotic Fracture: [13.7] Hip Fracture: [3.4] IMPRESSION: 1. There has been a slight decrease in the bone mineral density of the hips and femoral necks since the prior exam. All the T score values remain within the range of osteopenia however. 2. The T score for the spine is unchanged when compared to prior exam. This value also falls within the range of osteopenia. 3. See below National Osteoporosis Foundation guidelines on when to potentially initiate pharmacologic therapy. Based on the National Osteoporosis Foundation Guidelines, pharmacologic treatment should be initiated in any of the following, unless clinical conditions suggest otherwise: * Any patient with prior fragility fracture of the hip or vertebrae. A spine fracture indicates 5X risk for subsequent spine fracture and 2X risk for subsequent hip fracture. * Osteoporosis (T-score <-2.5). * Postmenopausal women and men age 50 and older with low bone mass/osteopenia (T-score between -1.0 and -2.5) by DXA and 10-year major osteoporotic fracture greater than 20% or a 10-year probability of hip fracture greater than 3%. These fracture risks are supplied above in the FRAX score, if applicable. * Clinician judgement and/or patient preferences may indicate treatment for people with 10-year fracture probabilities above or below these levels. Dictated by: Dictated on workstation # [id number]
== END ==
LOC: RAD 13:01
PROVIDERS: ATTEND Family Medicine
DX: Z13.820 Encounter for screening for osteoporosis (principal); M81.0 Age-related osteoporosis without current pathological fracture
CPT/HCPCS: 77080

== ENCOUNTER → 2019-05-08 | Outpatient (CLI) | payer MEDICARE | END | disposition home or self-care (01) | LOC: PREOP 05:34 | PROVIDERS: ATTEND Internal Medicine | DX: Z01.818 Encounter for other preprocedural examination (principal) ==

== ENCOUNTER 2019-07-04 09:01 | Outpatient (RCR) | payer MEDICARE ==
[~2019-07-04] VITALS: Ht 160 cm; Wt 60.4 kg
[~2019-07-04 09:01] MED LIST changes: +CBD OIL PO; +DIAZ5TAB49 PO; +HYDR-83 PO; +L.AC1CAP6 PO; +MAGN100T5 PO; +UBID100C17 PO
== END 2019-07-04 15:44 | disposition home or self-care (01) ==
LOC: PREOP 09:01
PROVIDERS: ATTEND Internal Medicine
DX: Z01.812 Encounter for preprocedural laboratory examination (principal); Z11.59 Encounter for screening for other viral diseases
CPT/HCPCS: 87635

== ENCOUNTER 2019-08-17 13:55 | Outpatient (CLI) | payer MEDICARE ==
[~2019-08-17] VITALS: Ht 162.6 cm; Wt 60.4 kg
[2019-08-17 14:05] VITALS: BP 118/76
[2019-08-17] MEDS ORDERED: ZOLEDRONATE (NON-FORMULARY) 100 ML IV ONE (14:15)
== END 2019-08-17 14:55 | disposition home or self-care (01) ==
LOC: SDC 13:55
PROVIDERS: ATTEND Family Medicine
DX: M85.80 Other specified disorders of bone density and structure, unspecified site (principal)
CPT/HCPCS: 96365

== ENCOUNTER → 2020-02-26 | Outpatient (CLI) | payer MEDICARE ==
[~2020-02-26] MED LIST changes: +ACHD5005 PO; -HYDR-83 PO
--- NOTE | 2020-02-26 15:56 | Diagnostic Imaging Report ---
PROCEDURE: US Thyroid. TECHNIQUE: Multiple real-time grayscale images were obtained of the thyroid in various projections. INDICATION: Multinodular goiter, follow-up. CORRELATION is made with prior thyroid ultrasound from 08/02/2018. Right lobe of the thyroid measures 5.2 x 1.2 x 1.8 cm and the left lobe measures 5.6 x 1.7 x 2.1 cm. Isthmus is 4 mm in thickness. Nodule of the right lobe of the thyroid measures 1.2 x 0.5 x 0.9 cm, unchanged. This appears to be mixed solid and cystic. A nodule in the upper pole of the left lobe measures 0.9 x 0.9 x 0.7 cm. This is stable when compared with prior exam. Primarily cystic nodule mid portion of the left lobe measures 2.9 x 1.0 x 1.7 cm compared with 2.6 x 1.0 x 1.3 cm. Calcification in the lower pole is 3 mm in size. Isthmus nodule measures 1.7 x 0.4 x 1.4 cm, stable. IMPRESSION: Stable bilateral thyroid nodules when compared with prior examination from 08/02/2018. Dictated by: Dictated on workstation # [id number]
== END ==
LOC: RAD 10:58
PROVIDERS: ATTEND Otolaryngology Otolaryngology/Facial Plastic Surgery
DX: E04.2 Nontoxic multinodular goiter (principal)
CPT/HCPCS: 76536

== ENCOUNTER 2020-11-25 12:55 | Outpatient (CLI) | payer MEDICARE ==
[~2020-11-25] VITALS: Ht 162.6 cm; Wt 60.4 kg
[~2020-11-25 12:55] MED LIST changes: -CYAN50008 PO; +CYAN50009 PO
[2020-11-25] MEDS ORDERED: ZOLEDRONATE (RECLAST) 5 MG/100 ML IV NR (13:30)
[2020-11-25 13:58] VITALS: BP 125/70
== END 2020-11-25 13:58 | disposition home or self-care (01) ==
LOC: SDC 12:55
PROVIDERS: ATTEND Family Medicine
DX: M81.0 Age-related osteoporosis without current pathological fracture (principal)
CPT/HCPCS: 96365

== ENCOUNTER → 2021-03-10 | Outpatient (CLI) | payer MEDICARE ==
--- NOTE | 2021-03-10 14:06 | Diagnostic Imaging Report ---
PROCEDURE: US Renal Bilateral. TECHNIQUE: Multiple real-time grayscale images were obtained over the kidneys in various projections bilaterally. INDICATION: Renal insufficiency. Right kidney appears to be largely replaced by cysts, limiting accurate size determination. The right kidney measures approximately 8.7 x 4.2 x 4.8 cm. Numerous cysts right kidney are noted with largest approximately 5.3 x 4.7 x 4.96 mm in the upper pole. No solid masses detected. Left kidney measures 12.0 x 4.7 x 4.9 cm. Left kidney does show normal cortical thickness and echogenicity. No solid or cystic masses on the left side are identified. There is no calculi or hydronephrosis. Images of the bladder are unremarkable. The right ureteral jet was not visualized. Left ureteral jet is visualized. 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 Left kidney is unremarkable. No calculi or hydronephrosis is seen. Dictated by: Dictated on workstation # [id number]
== END ==
LOC: RAD 12:37
PROVIDERS: ATTEND Family Medicine
DX: N28.1 Cyst of kidney, acquired (principal)
CPT/HCPCS: 76770

== ENCOUNTER → 2021-09-23 | Outpatient (CLI) | payer MEDICARE ==
--- NOTE | 2021-09-23 17:01 | Diagnostic Imaging Report ---
INDICATION: Postmenopausal screening COMPARISON: 04/11/2019 FINDINGS: AP Spine L1-L4: [BMD (g/cm2): 1.269] [T-Score: 0.6] [Z-Score: 2.5] [BMD Previous: 1.012] [BMD % Change: 25.4] LT Hip Neck: [BMD (g/cm2): 0.761] [T-Score: -2.0] [Z-Score: 0.0] LT Hip Total: [BMD (g/cm2):0.754] [T-Score:-2.0] [Z-Score: -0.2] [BMD Previous: 0.723] [BMD % Change: 4.3] RT Hip Neck: [BMD (g/cm2):0.747] [T-Score:-2.1] [Z-Score:-0.1] RT Hip Total: [BMD (g/cm2):0.772] [T-score:-1.9] [Z-Score:-0.1] [BMD Previous:0.740] [BMD % Change:4.3] *Indicates significant change from prior examination based on 95% confidence level. World Health Organization criteria for BMD interpretation classify patients as Normal (T-score at or above -1.0), Osteopenic (T-score between -1.0 and -2.5) or Osteoporotic (T-score at or below -2.5). LIMITATIONS AND MODIFICATION: None. FRACTURE RISK (FRAX SCORE): The ten year probability of (%): Major Osteoporotic Fracture: [12.6] Hip Fracture: [3.1] IMPRESSION: 1. Osteopenia (Low bone mass). 2. There has been a statistically significant increase in BMD since prior exam, detailed above. 3. See below National Osteoporosis Foundation guidelines on when to potentially initiate pharmacologic therapy. Based on the National Osteoporosis Foundation Guidelines, pharmacologic treatment should be initiated in any of the following, unless clinical conditions suggest otherwise: * Any patient with prior fragility fracture of the hip or vertebrae. A spine fracture indicates 5X risk for subsequent spine fracture and 2X risk for subsequent hip fracture. * Osteoporosis (T-score <-2.5). * Postmenopausal women and men age 50 and older with low bone mass/osteopenia (T-score between -1.0 and -2.5) by DXA and 10-year major osteoporotic fracture greater than 20% or a 10-year probability of hip fracture greater than 3%. These fracture risks are supplied above in the FRAX score, if applicable. * Clinician judgement and/or patient preferences may indicate treatment for people with 10-year fracture probabilities above or below these levels. Dictated by: Dictated on workstation # [id number]
== END ==
LOC: RAD 12:38
PROVIDERS: ATTEND Family Medicine
DX: M85.80 Other specified disorders of bone density and structure, unspecified site (principal); Z78.0 Asymptomatic menopausal state
CPT/HCPCS: 77080

== ENCOUNTER 2021-10-23 10:51 | Outpatient (CLI) | payer MEDICARE ==
[~2021-10-23] VITALS: Ht 157 cm; Wt 60.4 kg
[2021-10-23] MEDS ORDERED: ZOLEDRONATE (NON-FORMULARY) 100 ML IV ONE (11:30)
[2021-10-23 11:38] VITALS: BP 120/74
== END 2021-10-23 11:58 ==
LOC: SDC 10:51
PROVIDERS: ATTEND Family Medicine
DX: M85.80 Other specified disorders of bone density and structure, unspecified site (principal)
CPT/HCPCS: 96365

== ENCOUNTER → 2022-02-27 | Outpatient (CLI) | payer MEDICARE ==
--- NOTE | 2022-02-27 16:32 | Diagnostic Imaging Report ---
PROCEDURE: US Thyroid. TECHNIQUE: Multiple real-time grayscale images were obtained of the thyroid in various projections. INDICATION: Multinodular goiter. FINDINGS: The right lobe of thyroid measures 4.5 x 1.6 x 1.8 cm. Left lobe measures 5.4 x 1.7 x 2.4 cm. There are two nodules in the right lobe of the thyroid. One in the midportion measures 1.0 x 1.0 x 0.6 cm. One in the inferior to this measures 1.0 x 0.5 x 0.8 cm. In the left lobe there are several nodules. Largest in the upper pole measures 1.0 x 0.7 x 0.9 cm. It is solid. There is one in the midportion of the left lobe that measures 3.2 x 1.1 x 2.3 cm. This is predominantly cystic and multiloculated. IMPRESSION: Multinodular goiter. Nodules are in various stages of degeneration. None of the individual nodules have suspicious features. Dictated by: Dictated on workstation # [id number]
== END ==
LOC: RAD 13:00
PROVIDERS: ATTEND Otolaryngology Otolaryngology/Facial Plastic Surgery
DX: E04.2 Nontoxic multinodular goiter (principal)
CPT/HCPCS: 76536

== ENCOUNTER → 2022-08-21 | Outpatient (CLI) | payer MEDICARE ==
--- NOTE | 2022-08-21 17:11 | Diagnostic Imaging Report ---
INDICATION: Left hip pain AP and frog-leg views of left hip are obtained. Comparison is made to study of 06/24/2016. No acute fracture or malalignment is identified. There has been increase in chondrocalcinosis and mild dystrophic calcification adjacent to the left hip joint. No sclerotic focus or periosteal reaction is seen. IMPRESSION: Mild worsening of degenerative findings at the left hip without acute abnormality identified. Dictated by: Dictated on workstation # [id number]
== END ==
LOC: RAD 13:50
PROVIDERS: ATTEND Family Medicine
DX: M16.12 Unilateral primary osteoarthritis, left hip (principal); M85.88 Other specified disorders of bone density and structure, other site
CPT/HCPCS: 73502

== ENCOUNTER 2022-09-03 09:15 | Outpatient (RCR) | payer MEDICARE | END 2022-09-07 | disposition home or self-care (01) | PROVIDERS: ATTEND Nurse Practitioner Family | DX: M16.12 Unilateral primary osteoarthritis, left hip (principal); J45.909 Unspecified asthma, uncomplicated; N18.30 Chronic kidney disease, stage 3 unspecified ==

== ENCOUNTER 2022-10-01 10:30 | Outpatient (RCR) | payer MEDICARE | END 2022-10-01 12:05 | disposition home or self-care (01) | PROVIDERS: ATTEND Nurse Practitioner Family | DX: M16.12 Unilateral primary osteoarthritis, left hip (principal); N18.30 Chronic kidney disease, stage 3 unspecified ==